=== PATIENT | female | born 1950 | race Caucasian/White ===

== ENCOUNTER 2024-01-28 10:34 | Observation (INO) ==
[2024-01-28 11:11] LABS: ABS Eosinophils 0.3 10^3/uL (0.0-0.5); ABS Lymphocytes 1.7 10^3/uL (1.0-4.8); ABS Monocytes 0.5 10^3/uL (0.0-0.9); ABS Neutrophils 4.6 10^3/uL (1.5-7.6); ABS Nucleated RBC 0.03 10^3/ul; Eosinophil % 4.7 %; Hematocrit 37.2 % (35-45); Hemoglobin 12.8 g/dL (11.5-14.3); Lymphocyte % 23.5 %; Mean Corpuscular Hgb Conc 34.5 g/dL (31-36); Mean Platelet Volume 8.1 fL (7.5-11.2); Nucleated Red Blood Cells % 0.4 %/100WBC (0.0-0.8); Platelet Count 148 10^3/uL (150-450); Red Blood Count 4.59 10^6/uL (3.63-4.92); Red Cell Distribution Width 15.2 % (12-17); White Blood Count 7.1 10^3/uL (3.8-11.8)
[2024-01-28 11:48] LABS: Albumin/Globulin Ratio 3.3 (1-3); Calcium 8.3 mg/dL (8.6-10.3); Creatinine, Serum 1.19 mg/dL (0.51-0.95); Globulin 1.2 g/dL (2-4); Magnesium 1.9 mg/dL (1.9-2.7); Potassium 3.8 mmol/L (3.5-5.0); Total Bilirubin 0.9 mg/dL (0.2-1.0); Total Protein 5.2 g/dL (6.4-8.9); eGFR CKD-EPI 47.7 (>60)
[2024-01-28 12:01] LABS: TSH Ultra Thyroid Stim Horm 2.91 mcIU/mL (0.34-5.60)
[2024-01-28 12:44] LABS: High Sensitivity Troponin 1 Hr 5 pg/mL (<15)
[2024-01-28] MEDS ORDERED: Albuterol HFA INHALER 8 gm MDI INH PRN (14:46)
[2024-01-28] MEDS ORDERED: Sulfur Hexaflouride MICROSPHR 25 MG VIAL IV PRN (15:09)
[2024-01-28 16:10] LABS: Urine Appearance Clear; Urine Bilirubin Negative (Negative); Urine Blood Negative (Negative); Urine Color Light-Yellow; Urine Glucose Negative (Negative); Urine Ketones Negative (Negative); Urine Nitrite Negative (Negative); Urine Protein Negative (Negative); Urine Specific Gravity 1.009 (1.002-1.030); Urine Urobilinogen Negative (Negative)
[2024-01-28 16:27] LABS: Urine Bacteria Absent /HPF (Absent); Urine Red Blood Cell Absent /HPF (0-Trace); Urine Squamous Epithelial Cell Present /HPF (Absent); Urine White Blood Cell Trace(0-5/hpf) /HPF (0-Trace)
[2024-01-28] MEDS: Magnesium Sulfate IV 1GM/100ML 1 GM/100 ML BAG IV ONE (17:10)
[2024-01-28] MEDS: Fluticasone NASAL SPRAY 50MCG 16 gm SPRAY BTL BOTH NARES SCH (18:16)
[2024-01-29 06:21] LABS: Hematocrit 36.5 % (35-45); Hemoglobin 12.8 g/dL (11.5-14.3); Mean Corpuscular Volume 80.2 fL (80-97); Mean Platelet Volume 8.1 fL (7.5-11.2); Platelet Count 126 10^3/uL (150-450); Red Blood Count 4.55 10^6/uL (3.63-4.92); Red Cell Distribution Width 15.3 % (12-17); White Blood Count 7.2 10^3/uL (3.8-11.8)
[2024-01-29 06:46] LABS: Calcium 8.4 mg/dL (8.6-10.3); Creatinine, Serum 0.83 mg/dL (0.51-0.95); Magnesium 2.1 mg/dL (1.9-2.7); Potassium 3.6 mmol/L (3.5-5.0); eGFR CKD-EPI 73.5 (>60)
[2024-01-29] MEDS: Iohexol 350 (CONTRAST) 500 ML MDV IV ONE (12:54)
[2024-01-29] MEDS: RISEDRONATE 35 MG PO SCH (20:50)
[2024-01-30 06:11] LABS: ABS Eosinophils 0.4 10^3/uL (0.0-0.5); ABS Lymphocytes 1.5 10^3/uL (1.0-4.8); ABS Monocytes 0.5 10^3/uL (0.0-0.9); ABS Neutrophils 4.2 10^3/uL (1.5-7.6); Eosinophil % 6.5 %; Hematocrit 36.4 % (35-45); Hemoglobin 12.8 g/dL (11.5-14.3); Lymphocyte % 22.2 %; Mean Corpuscular Hemoglobin 28.2 pg (27-33); Mean Corpuscular Hgb Conc 35.2 g/dL (31-36); Mean Platelet Volume 8.2 fL (7.5-11.2); Nucleated Red Blood Cells % 0.1 %/100WBC (0.0-0.8); Platelet Count 130 10^3/uL (150-450); Red Blood Count 4.55 10^6/uL (3.63-4.92); Red Cell Distribution Width 15.2 % (12-17); White Blood Count 6.6 10^3/uL (3.8-11.8)
[2024-01-30 06:22] LABS: Calcium 8.8 mg/dL (8.6-10.3); Creatinine, Serum 0.93 mg/dL (0.51-0.95); Magnesium 2.1 mg/dL (1.9-2.7); eGFR CKD-EPI 64.1 (>60)
[2024-01-30 09:59] VITALS: BP 126/69
[2024-01-30 23:08] LABS: Anaplasma phagocytophilum Negative (Negative); B. miyamotoi PCR, B Negative (Negative); Babesia divergens/MO-1 Negative (Negative); Babesia ducani Negative (Negative); Ehrlichia chaffeensis Negative (Negative); Ehrlichia ewingii/canis Negative (Negative); Ehrlichia muris eauclairensis Negative (Negative)
== END 2024-01-30 13:10 | disposition home or self-care (01) ==
LOC: EDHOLD 10:34 → ED 10:34 → SUATTDRO 14:00 → MEDTELE 15:50
PROVIDERS: ADMIT Hospitalist; ATTEND Internal Medicine